=== PATIENT | male | born 1990 | race Two or more races ===

== ENCOUNTER 2016-11-23 04:59 | Emergency (ER) | payer MEDICAID ==
--- NOTE | 2016-11-23 05:26 | ED Physician Chart ---
Chief Complaint/HPI - Patient Information Date Seen:: 11/23/16 Time Seen:: 05:05 Chief Complaint:: right eye redness History of Present Illness:: 26-year-old male, otherwise healthy, complains of acute, constant, worsening, moderate, right eye redness since about 3 AM this morning. Has associated itchiness and purulent discharge. No vision changes. Allergies:: Allergies Allergy/AdvReac Type Severity Reaction Status Date / Time No Known Allergies Allergy Verified 11/23/16 05:01 Vitals:: Vital Signs - 8 hr 11/23/16 05:00 Temp 97.9 F HR 82 RR 18 BP 120/79 O2 Sat % 99 Historian:: Patient Review:: Nurse's Note Reviewed Review of Systems - Review of Systems Other: Complete system review otherwise unremarkable except as noted in history of present illness. Past Medical History - Past Medical History Past Medical History: No significant medical hx Family History: None Social History: Non Smoker, No Alcohol, No Drug Use, Employed Surgical History: None Psychiatricy History: None Medication: None Family Medical History - Family Member Mother History Unknown: Yes Physical Exam - Physical Examination Other:: INITIAL VITAL SIGNS: Reviewed by me GENERAL: Alert and interactive. No acute distress HEAD: Head is normocephalic and atraumatic EYES: EOMI. PERRL. No scleral icterus. Right-sided conjunctival injection, right eye 20/25, left eye 20/30 ENT: Moist mucous membranes. NECK: Supple. No masses. Full range of motion RESPIRATORY: No tachypnea. Clear breath sounds bilaterally. No wheezing, rales, or rhonchi CV: Regular rate and rhythm. No murmurs, rubs, or gallops ABDOMEN: Soft, non-distended, non-tender. No guarding. No rebound. No masses. EXTREMITIES: No deformity. No cyanosis. No edema. SKIN: Warm and dry. No obvious rashes. NEUROLOGIC: Alert and oriented. Face is symmetric. Speech is normal. Moves all extremities equally. Motor and sensory distally intact. ED Septic Shock - . Is Septic Shock (SBP<90, OR Lactate>4 mmol\L) present?: No - <6hrs of presentation: Vital Signs: Vital Signs - 8 hr 11/23/16 05:00 Temp 97.9 F HR 82 RR 18 BP 120/79 O2 Sat % 99 Reassessment (Disposition) - Reassessment Reassessment:: The patient typically wears glasses. Does not wear contacts. No vision changes. Has right-sided conjunctivitis. Unspecified organism. Prescribed Polytrim ophthalmic drops. Follow up with PCP 1-2 days. Return to ER precautions given. Patient says he understands and agrees the plan. Reassessment Condition:: Improved - Diagnosis Diagnosis:: Acute right-sided conjunctivitis, unspecified organism - Aftercare/Follow up Instructions Aftercare/Follow-Up Instructions:: Counseled pt regarding lab results/diagnosis & need follow up, Refer to Discharge Instructions Medication Prescribed:: Polytrim ophthalmic solution - Patient Disposition Discharge/Transfer:: Home Time:: 05:27 Condition at Disposition:: Improved ED Discharge Plan - Patient Disposition Admit/Discharge/Transfer: PT DISCHARGED HOME Condition at Disposition: Improved Instructions: Conjunctivitis (Viral and Bacterial)
== END 2016-11-23 05:40 | disposition home or self-care (01) ==
LOC: ER 04:59
DX: H10.31 Unspecified acute conjunctivitis, right eye (principal)
CPT/HCPCS: Z7502

== ENCOUNTER 2017-01-17 03:19 | Emergency (ER) | payer MEDICAID ==
--- NOTE | 2017-01-17 09:59 | ER Physician Documentation ---
DATE OF SERVICE: 01/17/2017 HISTORY OF PRESENT ILLNESS: A 26-year-old male patient. The patient came to the Emergency Room saying that he something felt inside his rectum and so he wanted to make sure that there is no wart or any hemorrhoids. He says ____ hemorrhoids. On physical examination, I did not see any hemorrhoids or any warts, anything outside around the rectal area along with me the nurse, Patience, also was present and nothing was seen over there. The patient was advised to go back and see his physician. In the meantime, he knows that he has hemorrhoids, he has done Sitz bath. He has taken vegetarian diet and stool softeners and Sitz bath, etc. He is aware of all these things. He is a ramesh by thing and about a month ago, he had sexual intercourse with his boyfriend. Internal hemorrhoids cannot be felt by the fingers, to be examined by the general surgeon or by his M.D who will check him up. ____ hemorrhoids could not be felt by that. ____ further examination, this should be done by his physician or a surgeon who can see inside. I cannot see anything by external anal examination and the nurse witnessed it with me. He has a history of hypertension and hypercholesterolemia. He takes one medicine for high cholesterol and the same medicine for hypertension. He has no other surgeries. Family history and medications, negative. REVIEW OF SYSTEMS: Essentially benign, and negative. PHYSICAL EXAMINATION: VITAL SIGNS: Showed temperature 96.9, pulse of 77, respirations 19, blood pressure 123/76, sat 99%. GENERAL: He is comfortably sitting on his butt. In ____ anal area, no pain, no discomfort, nothing. He just wants somebody to check him up, even if it is at 4:00 in the morning, he wants it to be checked it out right away and for that he came in, nothing is seen. His height is 5 feet 8 inches, weighing 230 pounds. HEART: Normal heart sounds. No murmur, click or rub. CHEST: Clear without any rales, rhonchi, or bronchial breathing. ABDOMEN: Soft, benign and negative. ____: Normal. CLINICAL IMPRESSION: The patient feels something inside his rectum. He is advised to see his physician or to see a general surgeon if he suspect something inside his rectum, so he can be examined by a general surgeon or a drug safety scientist, who can go inside and check it. At the present moment here in the Emergency Room, at 4:00 in the morning, I cannot do a rectal and feel hemorrhoids on him. So the final diagnosis is the patient feeling hemorrhoids inside, but he states he wants to know whether it is a wart or not. On examination, I did not see anything outside neither did the nurse. The patient is comfortable, very nicely sitting on his butt, absolutely zero pain, zero things. Vital signs are absolutely normal. Allergies none known. Pain is 0/10. Code status is full code. In the ER, he knows all about Sitz bath, Preparation H ointment, ____, eat vegetables, eat soft diet, take stool softeners, etc. JOB# [id number]
== END 2017-01-17 04:40 | disposition home or self-care (01) ==
LOC: ER 03:19
DX: K64.8 Other hemorrhoids (principal); I10 Essential (primary) hypertension; E78.00 Pure hypercholesterolemia, unspecified
CPT/HCPCS: Z7502